=== PATIENT | male | born 1960 ===

== ENCOUNTER → 2020-05-04 | Outpatient (CLI) | payer OTHER ==
--- NOTE | 2020-05-08 03:52 | ECWPNPC ---
PATIENT NAME: NOE KIMBLE : 1960 GENDER: MALE VISIT DATE: 05/04/2020 DISCHARGE DATE: 05/04/20 1207 VISIT LOCKED DATE TIME: PHYSICIAN: CORY LEE MD RESOURCE: CORY LEE MD REASON FOR APPOINTMENT 1. PRE SEDAT- SPINAL TAP HISTORY OF PRESENT ILLNESS GENERAL: 60-YEAR-OLD MALE PATIENT. THE PATIENT WAS SENT HERE BY DR. JUAREZ FOR A SPINAL TAP FOR MULTIPLE SCLEROSIS PROTOCOL. THE PATIENT HAS DEVELOPED A RASH OVER THE LAST WEEK. HE DISCUSSED IT WITH HIS PRIMARY CARE PHYSICIAN AND THEY ARE NOT SURE WHAT THE RASH IS. PATIENT DENIES UNEXPLAINABLE WEIGHT LOSS, FEVER, CHILLS, NEW CHANGES ON HIS URINARY OR BOWEL CONTROL. FALL RISK SCREENING: SCREENING :ONE FALL WITHOUT INJURY IN THE PAST YEAR PT REPORTS HE HAS "BLACKED OUT" THREE TIMES IN HIS LIFE, AND HAS FALLEN. THE LAST TIME WAS WHEN HE GOT OUT OF A HOT TUB. WAS SEEN BY A PEANUT SHELLER YEARS AGO WITH NEGATIVE TESTING. PAIN SCREENING: PATIENT HAS A COMPLAINT OF ACUTE OR CHRONIC PAIN :YES LOCATION OF PAIN:LEFT SHOULDER, NECK INTENSITY OF PAIN (SCALE OF 1 TO 10):5 PAIN IS REPORTED A 4-6 INTENSITY, VARIES IN LOCATION, MOST OFTEN IN NECK AND LEFT SHOULDER, SOMETIMES IN LOW BACK RADIATING DOWN LEGS WHAT DOES YOUR PAIN FEEL LIKE:ACHING, SHARP DURATION:INTERMITTENT PAIN IS INCREASED BY:ACTIVITIES PAIN IS DECREASED BY:OTHERS INVERSION TABLE, REST NURSING NOTE: - - -. PAIN CENTER INTAKE QUESTIONS: DO YOU HAVE A HISTORY OF MRSA? :NO DO YOU TAKE A BLOOD THINNERS? :NO DO YOU HAVE ANY BLEEDING DISORDERS? :NO ANY NEW NUMBNESS OR WEAKNESS IN YOUR LEGS OR ARMS? :YES PT REPORTS FATIGUE, ALSO REPORTS A NEW "CLUMSINESS" AND NUMBNESS/TINGLING IN HANDS, ANY PACEMAKER,DEFIBRILLATOR, OR DORSAL COLUMN STIMULATOR? :NO DO YOU HAVE ANY RASHES OR OPEN SORES? :YES PT HAS A RASH ON HIS BACK FOR THE LAST WEEK. HE REPORTS HE WAS WORKING IN THE [place], AND W[place]ING [place]. UNKNOWN CAUSE - IT IS ITCHY, SMALL RED SPOTS. HE WENT TO A MD, PUT ON PREDNISONE. ARE YOU ALLERGIC TO IV DYE? :NO ARE YOU DIABETIC? :NO ANY NEW PROBLEMS WITH YOUR MEDICATIONS? :NO HAVE YOU RECEIVED A VACCINE IN THE PAST 30 DAYS? :NO DO YOU PLAN TO RECEIVE A VACCINE IN THE NEXT 21 DAYS? :NO DO YOU NEED ANY PRESCRIPTION? :NO DO YOU TAKE ANY IMMUNOSUPPRESSIVE MEDICATIONS? :NO CURRENT MEDICATIONS TAKING VITAMIN D (ERGOCALCIFEROL) 1.25 MG (80072 UT) CAPSULE 1 CAPSULE ORALLY TAKING LYSINE 1000 MG TABLET DIRECTED ORALLY DAILY TAKING EFFEXOR XR 150 MG CAPSULE EXTENDED RELEASE 24 HOUR 1 CAPSULE WITH FOOD ORALLY ONCE A DAY TAKING AMBIEN CR 12.5 MG TABLET EXTENDED RELEASE 1 TABLET AT BEDTIME NEEDED ORALLY ONCE A DAY, NOTES: NOT TAKING RECENTLY MEDICATION LIST REVIEWED AND RECONCILED WITH THE PATIENT PAST MEDICAL HISTORY PILONIDAL CYST ANXIETY DEPRESSION VITAMIN D DEFICIENCY INSOMNIA HEADACHES CHRONIC NECK PAIN SPONDYLOLYSIS MULTIPLE SCLEROSIS ALLERGIES N.K.D.A. SURGICAL HISTORY CHOLEYCYSTECTOMY PILONIDAL CYST FAMILY HISTORY FATHER: DIAGNOSED WITH HYPERTENSION, OTHER MALIGNANT NEOPLASM OF UNSPECIFIED SITE SISTER BREAST CANCER. SOCIAL HISTORY GENERAL: TOBACCO USE ARE YOU A:FORMER SMOKER HOW LONG HAS IT BEEN SINCE YOU LAST SMOKED?> 10 YEARS LATEX QUESTIONNAIRE LATEX ALLERGY : HAVE YOU EVER DEVELOPED ANY TYPE OF REACTION AFTER HANDLING LATEX PRODUCTS SUCH RUBBER GLOVES, CONDOMS, DIAPHRAGMS, BALLOONS, SOCKS, OR UNDERWEAR?NO LATEX ALLERGY : HAVE YOU EVER DEVELOPED ANY TYPE OF REACTION DURING OR AFTER DENTAL APPOINTMENT, VAGINAL/RECTAL EXAMINATION, SURGICAL PROCEDURE, OR ANY OTHER EXPOSURE?NO LATEX RISK : HAVE YOU EVER HAD ANY DIFFICULTY BREATHING OR HIVES AFTER EATING OR HANDLING ANY FRUITS, OR VEGETABLES; SUCH KIWI, BANANAS, STONE FRUITS, OR CHESTNUTSNO LATEX RISK : DO YOU HAVE A PREVIOUS PERSONAL HISTORY OF MORE THAN NINE SURGERIES, SPINA BIFIDA, OR REPEATED CATHERIZATIONS? NO LATEX RISK : ARE YOU FREQUENTLY EXPOSED TO LATEX PRODUCTS IN YOUR OCCUPATION?NO DATE ASKED : 05/04/2020 RECREATIONAL DRUG USE DRUG USE?NO CAFFEINE CAFFEINE USE?YES HOW OFTEN AND HOW MUCH? 2/DAY LANGUAGE LANGUAGES SPOKEN:MOZAMBICAN LEARNING BARRIERS / SPECIAL NEEDS BARRIERS TO LEARNING?NO HEARING IMPAIRED?YES PT REPORTS SOME HEARING LOSS BILATERALLY, DOES NOT WEAR HEARING AIDS VISION IMPAIRED?NO COGNITIVELY IMPAIRED?NO READINESS TO LEARN?YES LEARNING PREFERENCES?NO LEARNING CAPABILITIES PRESENT?YES EMOTIONAL BARRIERS?NO SPECIAL DEVICES?NO CORROSION CONTROL TECHNICIAN NEEDED?NO DOMESTIC VIOLENCE DO YOU FEEL SAFE IN YOUR ENVIRONMENT?YES OCCUPATION: SEO COORDINATOR. MARITAL STATUS: SINGLE. PAIN CLINIC PFS, CLERGY, PUBLIC HEALTH REFERRALS HAS THE PATIENT BEEN EDUCATED REGARDING HIS/HER PLAN OF CARE?YES HAS THE PATIENT BEEN EDUCATED REGARDING PAIN, THE RISK FOR PAIN, THE IMPORTANCE OF EFFECTIVE PAIN MANAGEMENT, AND THE PAIN ASSESSMENT PROCESS?YES ADVANCE DIRECTIVE ADVANCE DIRECTIVE DISCUSSED WITH PATIENT:YES PT STATES THAT HE DOES NOT HAVE A HCP AT THIS TIME, DECLINED ASSISTANCE WITH PAPERWORK. HOSPITALIZATION/MAJOR DIAGNOSTIC PROCEDURE NO HOSPITALIZATION HISTORY. REVIEW OF SYSTEMS GLAUCOMA: NOTHYROID DISEASE: NOHYPERTENSION: NOHEART DISEASE: NOLUNG DISEASE: NODIABETES: NOGI DISEASE: NO LIVER DISEASE: YES, HAD GALLBLADDER REMOVED.KIDNEY DISEASE: NOSTERIOD USE: NONEUROLOGICAL DISEASE: YES, BLURRED VISION, DIZZINESS BACK PROBLEMS: YES, PAINEXTREMITIES: NOGENITOURINARY: YES, DIARRHEABLEEDING DISORDER: NOASA CLASS: IIAIRWAY CLASS: II. VITAL SIGNS WT 178 LBS, HT 60 IN, BMI 34.76 INDEX, BP 174/96 MM HG, HR 65 /MIN, RR 18 /MIN, TEMP 97.5 F, OXYGEN SAT % 99%, SAFE IN ENV? (Y/N) Y, NA INITIALS AW 1039, REVIEWED BY: GRACE. EXAMINATION GENERAL EXAMINATION: THE PATIENT IS ALERT, ORIENTED TIMES THREE AND COOPERATIVE. HEART SHOWS REGULAR RHYTHM, NO MURMURS AND NO GALLOPS. LUNGS ARE CLEAR TO AUSCULTATION. THE LEFT LEG IS WEAKER THAN THE RIGHT LEG ON FLEXION AND EXTENSION. ASSESSMENTS NEUROLOGICAL SYMPTOMS - R29.90 (PRIMARY), MULTIPLE SCLEROSIS PROTOCOL LOW BACK PAIN RADIATING DOWN LEG - M54.5 CHRONIC HEADACHES - R51 RASH OF BACK - R21, NEW ONSET TREATMENT NEUROLOGICAL SYMPTOMS CLINICAL NOTES: WE DISCUSSED SEVERAL ALTERNATIVES WITH MR. KIMBLE REGARDING HIS TREATMENT OPTIONS AND CARE. THE PATIENT HAS A RASH ON HIS BACK THAT WE ARE UNSURE OF. HE IS GOING TO FOLLOW UP WITH HIS PASTE MIXER LIQUID REGARDING THIS. WE ARE GOING TO HOLD OFF ON THE SPINAL TAP UNTIL THE RASH CLEARS. I WILL NEED A CLEARANCE FROM THE PASTE MIXER LIQUID BEFORE WE CAN MOVE FORWARD WITH THE SPINAL TAP. THIS CAN BE DONE OVER THE PHONE. DO NOT BOOK THE PATIENT UNTIL I HAVE THE CLEARANCE FROM THE PASTE MIXER LIQUID. PLEASE DO NOT BOOK THE PATIENT UNTIL I PERSONALLY SEE THE CLEARANCE OR SPEAK WITH THE DOCTOR AND I AGREE IN BOOING THE PATIENT. WE WILL TRY TO GET THIS DONE WITHIN THE NEXT MONTH, IF POSSIBLE. I DISCUSSED THE RISKS ASSOCIATED WITH THE PROCEDURE, SUCH POST SPINAL HEADACHE AND INFECTION. THE PATIENT WOULD LIKE TO MOVE FORWARD WITH IV SEDATION DUE TO ANXIETY AND PAIN ASSOCIATED WITH THE PROCEDURE. THE PATIENT KNOWS TO CALL THE OFFICE IF HE HAS ANY QUESTIONS OR CONCERNS. THE PATIENT UNDERSTANDS AND IS IN AGREEMENT WITH THE TREATMENT PLAN. I, CATY BRICEÑO, DOCUMENTED THE ABOVE INFORMATION ACTING A SCRIBE FOR DR. LEE. I HAVE REVIEWED THE ABOVE DOCUMENT, WRITTEN BY CATY BRICEÑO, MEAT TRIMMER, AND I VERIFY THAT IT IS ACCURATE . PROCEDURE CODES FA211 ESTABILISHED PATIENT [facility] [id number] OFFICE/OUTPATIENT VISIT NEW DISPOSITION & COMMUNICATION FOLLOW UP NEED CLEARANCE FROM PASTE MIXER LIQUID BEFORE MOVING FORWARD WITH SPINAL TAP (REASON: NEED CLEARANCE FROM PASTE MIXER LIQUID BEFORE MOVING FORWARD WITH SPINAL TAP) ELECTRONICALLY SIGNED BY CORY LEE MD, MD ON 05/07/2020 AT 03:01 PM EDT DISCLAIMER : THIS IS A VISIT SUMMARY EXTRACTED FROM THE [employer] CHART. IT IS NOT A COPY OF THE [employer] PROGRESS NOTE. DARIO
== END ==
LOC: M PAIN 09:45
PROVIDERS: ATTEND Anesthesiology
DX: R29.90 Unspecified symptoms and signs involving the nervous system (principal); M54.5 Low back pain; R51 Headache; R21 Rash and other nonspecific skin eruption

== ENCOUNTER → 2020-06-06 | Outpatient (POV) | payer OTHER | LOC: M PAIN 09:45 | PROVIDERS: ATTEND Anesthesiology | DX: R29.90 Unspecified symptoms and signs involving the nervous system (principal) ==

== ENCOUNTER → 2020-06-11 | Outpatient (CLI) | payer OTHER ==
[~2020-06-11] MED LIST: LIDOCAINE 1% SDV 30ML VIAL As Ordered ONE; MIDAZOLAM INJ 2MG/2ML VIAL (J2250 PER 1MG) As Ordered ONE; fentaNYL 100 MCG/2 ML INJECTION (J3010) As Ordered ONE
[2020-06-11 12:06] LABS: APPEARANCE, CSF CLEAR (CLEAR); COLOR, CSF COLORLESS (COLORLESS); CSF TUBE# CELL CNT TUBE 3
[2020-06-11 12:44] LABS: CSF TUBE# GLU TUBE 1; CSF TUBE# TP TUBE 1; GLUCOSE CSF 58 MG/DL (40-75); TOTAL PROTEIN,CSF 41 MG/DL (15-45)
== END ==
LOC: M PAIN 08:12
PROVIDERS: ATTEND Anesthesiology
DX: R29.90 Unspecified symptoms and signs involving the nervous system (principal)